=== PATIENT | female | born 2000 | race Caucasian/White ===

== ENCOUNTER 2023-11-25 02:23 | Emergency (ER) | payer BC, MEDICAID ==
[~2023-11-25] VITALS: Ht 160 cm; Wt 90.7 kg
[2023-11-25] MEDS ORDERED: LIDOCAINE 1%, 20 ML MDV 20 ML ONE (02:33)
[2023-11-25 02:36] VITALS: BP_SYST 124; PULSE 89; RESP 18; TEMP 98.3; O2SAT 99
[2023-11-25] MEDS ORDERED: BACITRACIN 1 GM OINT TP ONE (02:54)
[2023-11-25] MEDS: DIPHTH,PERTUSS(ACELL),TET VAC 0.5 ML VIAL (Tdap) I.M. ONE (03:23)
== END 2023-11-25 03:19 | disposition home or self-care (01) ==
LOC: SED 02:23
DX: S91.312A Laceration without foreign body, left foot, initial encounter (principal); W26.8XXA Contact with other sharp object(s), not elsewhere classified, initial encounter; Y93.89 Activity, other specified; Y92.89 Other specified places as the place of occurrence of the external cause; Y99.8 Other external cause status
CPT/HCPCS: 90715; 99283; J2001

== ENCOUNTER 2023-12-03 16:03 | Emergency (ER) | payer MEDICAID ==
[~2023-12-03] VITALS: Ht 160 cm; Wt 90.7 kg
[2023-12-03 16:08] VITALS: BP_SYST 115; PULSE 92; RESP 18; TEMP 97; O2SAT 100
[2023-12-03] MEDS ORDERED: BACITRACIN 1 GM OINT TP ONE (16:28)
[2023-12-03 16:59] VITALS: BP_SYST 115; PULSE 92; RESP 18; TEMP 97; O2SAT 100
== END 2023-12-03 17:00 | disposition home or self-care (01) ==
LOC: SED 16:03
DX: S91.312D Laceration without foreign body, left foot, subsequent encounter (principal); Z48.02 Encounter for removal of sutures; X58.XXXD Exposure to other specified factors, subsequent encounter
CPT/HCPCS: 99282